=== PATIENT | male | born 1975 | race American Indian/Alaskan Native ===

== ENCOUNTER 2019-04-06 05:59 | Emergency (ER) | payer SELFPAY ==
[2019-04-06] MEDS ORDERED: REGLAN PO ONE (07:21)
[2019-04-06] MEDS ORDERED: BENADRYL PO ONE (07:21)
--- NOTE | 2019-04-06 07:34 | Emergency Department Report ---
ED General Adult HPI - General Chief complaint: Neck Pain/Injury Stated complaint: STIFF NECK Time Seen by Provider: 04/06/19 06:54 Source: patient Mode of arrival: Stretcher Limitations: No Limitations - History of Present Illness Initial comments: Patient is a 44-year-old male who presents to the emergency room with complaints of a headache to the right yarsani that began last night. He states he felt like he had a "popping sensation." Pt states that he snorted cocaine around 12 AM last night and looked on the Internet and was concerned he had an aneurysm. he states he also felt some discomfort in his neck which has since improved. Patient states he just has soreness over the right yarsani now. He denies any vision changes, numbness, weakness. Patient also endorses marijuana use. He denies any alcohol use. he denies any past medical history or allergies to medications. - Related Data Allergies Allergy/AdvReac Type Severity Reaction Status Date / Time No Known Allergies Allergy Unverified 04/06/19 06:23 ED Review of Systems ROS: Stated complaint: STIFF NECK Other details as noted in HPI Comment: All other systems reviewed and negative ED Past Medical Hx - Past Medical History Previous Medical History?: No - Surgical History Past Surgical History?: No - Social History Smoking Status: Never Smoker Substance Use Type: Cocaine, Marijuana ED Physical Exam - General Limitations: No Limitations General appearance: alert, in no apparent distress - Head Head exam: Present: atraumatic, normocephalic, other (no TTP or edema over the temporal artery bilaterally) - Eye Eye exam: Present: normal appearance, PERRL, EOMI - ENT ENT exam: Present: mucous membranes moist - Neck Neck exam: Present: normal inspection, full ROM, other (FROM of neck without difficulty, no stiffiness, no meningeal signs ). Absent: tenderness, meningismus - Respiratory Respiratory exam: Present: normal lung sounds bilaterally. Absent: respiratory distress, wheezes, rales, rhonchi, stridor, chest wall tenderness, accessory muscle use, decreased breath sounds, prolonged expiratory - Cardiovascular Cardiovascular Exam: Present: regular rate, normal rhythm, normal heart sounds. Absent: systolic murmur, diastolic murmur, rubs, gallop - Neurological Exam Neurological exam: Present: alert, oriented X3, CN II-XII intact, normal gait, other (normal finger to nose, normal heel to hadley, 5/5 strength in the BUE/BLE, equal goat driver strength, sensation intact throughout, no focal neuro deficit). Absent: motor sensory deficit - Psychiatric Psychiatric exam: Present: normal affect, normal mood - Skin Skin exam: Present: warm, dry, intact ED Course Vital Signs 04/06/19 04/06/19 06:15 07:41 Temperature 97.9 F Pulse Rate 86 81 Respiratory 16 Rate Blood Pressure 136/100 Blood Pressure 130/90 [Right] O2 Sat by Pulse 100 Oximetry ED Medical Decision Making - Radiology Data Radiology results: report reviewed CT HEAD WITHOUT CONTRAST INDICATION : BERRIOS. Headache for 4 hours. TECHNIQUE: Axial imaging performed from the skull apex through the skull base without the use of contrast. All CT scans at this location are performed using CT dose reduction employed for ALARA by means of automated exposure control. COMPARISON: None FINDINGS: Parenchyma: No abnormal density. No mass or hemorrhage. Ventricles: Ventricles are normal in size and appear symmetric. Soft tissues: Soft tissues including the orbits appear normal. Bones: No acute osseous abnormality. Sinuses: Sinuses and mastoid air cells are clear. IMPRESSION: Normal head CT. Signer Name: Arpan Mcclendon MD Signed: 04/06/2019 8:30 AM Workstation Name: [id number] Transcribed By: REF Dictated By: ARPAN MCCLENDON MD Electronically Authenticated By: ARPAN MCCLENDON MD Signed Date/Time: 04/06/19829 DD/ 5 TD/TT: - Medical Decision Making Patient is a 44-year-old male who presents to the emergency room with complaints of a headache to the right yarsani that began last night. He states he felt like he had a "popping sensation." Pt states that he snorted cocaine around 12 AM last night and looked on the Internet and was concerned he had an aneurysm. he states he also felt some discomfort in his neck which has since improved. Patient states he just has soreness over the right yarsani now. He denies any vision changes, numbness, weakness. Patient also endorses marijuana use. He denies any alcohol use. he denies any past medical history or allergies to medications. initial vitals with elevated diastolic BP which improved on repeat. on exam: no TTP over the temporal artery, no focal neuro deficits, no neck stiffness, no meningeal signs, EOMI, PERRL. CT head with no acute process. pt given medications for BERRIOS, and BERRIOS completely resolved and pt was resting comfortably. discussed drug abuse complications and cessation with pt. pt given handout for [facility] for outpatient drug rehabilitation. pt denies any SI, HI, hallucinations. advised pt to please follow up with a primary care doctor in the next 2-3 days. Drink plenty of water. please consider cessation of drug use. given handout for community resources. return to the emergency room for any new or worsening symptoms. - Differential Diagnosis ICH, AVM, aneurysm, migrane, temporal arteritis, drug use, HTN related BERRIOS Critical care attestation.: If time is entered above; I have spent that time in minutes in the direct care of this critically ill patient, excluding procedure time. ED Disposition Clinical Impression: Cocaine abuse Headache Qualifiers: Headache type: unspecified Headache chronicity pattern: acute headache Intractability: not intractable Qualified Code(s): R51 - Headache Disposition: DC-01 TO HOME OR SELFCARE Is pt being admited?: No Does the pt Need Aspirin: No Condition: Stable Instructions: Acute Headache (ED) Additional Instructions: Please follow up with a primary care doctor in the next 2-3 days. Drink plenty of water. please consider cessation of drug use. given handout for community resources. return to the emergency room for any new or worsening symptoms. Referrals: [facility] [Provider Group] - 2-3 Days Time of Disposition: 08:49 Print Language: GEORGIAN
--- NOTE | 2019-04-06 08:34 | Cat Scan Report ---
CT HEAD WITHOUT CONTRAST INDICATION : BERRIOS. Headache for 4 hours. TECHNIQUE: Axial imaging performed from the skull apex through the skull base without the use of con trast. All CT scans at this location are performed using CT dose reduction employed for CHELSIE ram of automated exposure control. COMPARISON: None FINDINGS: Parenchyma: No abnormal density. No mass or hemorrhage. Ventricles: Ventricles are normal in size and appear symmetric. Soft tissues: Soft tissues including the orbits appear normal. Bones: No acute osseous abnormality. Sinuses: Sinuses and mastoid air cells are clear. IMPRESSION: Normal head CT. Signer Name: Arpan Lei MD Signed: 04/06/2019 8:30 AM Workstation Name: [id number]
[2019-04-06 09:04] VITALS: BP 131/84
== END 2019-04-06 09:03 | disposition home or self-care (01) ==
LOC: ED 05:59
DX: R51 Headache (principal); F14.10 Cocaine abuse, uncomplicated; F12.10 Cannabis abuse, uncomplicated
CPT/HCPCS: 70450